=== PATIENT | female | born 1990 | race Caucasian/White ===

== ENCOUNTER → 2018-09-30 | Outpatient (CLI) | payer OTHER ==
[2018-09-30 21:42] LABS: CHLAMYDIA DNA AMPLIFICATION NEGATIVE (NEGATIVE); GC DNA AMPLIFICATION NEGATIVE (NEGATIVE)
== END ==
LOC: M LRY 13:59
PROVIDERS: ATTEND Internal Medicine Addiction Medicine
DX: Z11.3 Encounter for screening for infections with a predominantly sexual mode of transmission (principal)

== ENCOUNTER → 2018-10-04 | Outpatient (CLI) | payer OTHER | LOC: M LRY 08:31 | PROVIDERS: ATTEND Internal Medicine Addiction Medicine | DX: Z02.89 Encounter for other administrative examinations (principal) ==